=== PATIENT | male | born 1965 | race Caucasian/White ===

== ENCOUNTER 2017-02-05 13:56 | Emergency (ER) | payer MEDICAID, OTHER ==
[~2017-02-05] VITALS: Ht 182.9 cm; Wt 91.0 kg
[2017-02-05 18:15] VITALS: BP 133/82
== END 2017-02-05 18:34 | disposition home or self-care (01) ==
LOC: ER 14:42
DX: K42.9 Umbilical hernia without obstruction or gangrene (principal); R03.0 Elevated blood-pressure reading, without diagnosis of hypertension
CPT/HCPCS: 99281; 99282